=== PATIENT | male | born 1985 | race African-American/Black ===

== ENCOUNTER 2017-02-14 22:22 | Emergency (ER) | payer OTHER ==
[~2017-02-14] VITALS: Ht 188 cm; Wt 90.7 kg
[2017-02-14 23:39] VITALS: BP 127/76
== END 2017-02-14 23:40 | disposition home or self-care (01) ==
LOC: ER 22:22
DX: J06.9 Acute upper respiratory infection, unspecified (principal); B34.9 Viral infection, unspecified; M06.9 Rheumatoid arthritis, unspecified; F10.99 Alcohol use, unspecified with unspecified alcohol-induced disorder; F17.200 Nicotine dependence, unspecified, uncomplicated

== ENCOUNTER 2017-08-18 16:25 | Emergency (ER) | payer OTHER ==
[~2017-08-18] VITALS: Ht 188 cm; Wt 90.7 kg
--- NOTE | ~2017-08-18 | EKG ---
[facility] [place] [address] ELECTROCARDIOGRAM REPORT Name: ROSA ELENATERRIE Room #: DEP JORGE LUIS Ramos#: [id number] Admission: 08/18/17 Attend Phys: Discharge: 08/18/17 Date of : 89 Report #: [id number] THIS REPORT FOR: //name// [facility] ED Test Date: 2017-08-18 Test Time: 16:52:36 Pat Name: TERRIE CUBA Department: Room: Gender: Court Recording Monitor: HUBER : 1985 Requested By: Adi Mcknight Order Number: [id number] MD: Loki Reyes Measurements Intervals Fluker Rate: 60 P: 62 MS: 179 QRS: 66 QRSD: 91 T: 60 QT: 382 QTc: 382 Interpretive Statements Sinus rhythm ST elev, probable normal early repol pattern Baseline wander in lead(s) V2 No previous ECG available for comparison Electronically Signed On 08-19-2017 8:04:27 [employer]ESS [employer]KE [employer]PER[employer] by Loki Reyes [email or web address] <ELECTRONICALLY SIGNED> By: Loki Reyes MD, [facility] 08/19/17 0804 [id number] Loki Reyes MD, FACC /EPI
[2017-08-18 17:08] LABS: ABSOLUTE NEUTROPHILS 4.3 thou/uL (1.4-8.2); BASOPHILS 1.6 % (0.0-2.0); EOSINOPHILS 0.9 % (0.0-3.0); HEMATOCRIT 46.4 % (42.0-52.0); HEMOGLOBIN 15.2 gm/dL (14.0-18.0); LYMPHOCYTES 24.3 % (24.0-44.0); MCH 30.5 pg (26.0-34.0); MCHC 32.7 g/dL (28.0-37.0); MCV 93.4 fL (80.0-100.0); MONOCYTES 8.5 % (1.0-8.0); PLATELET COUNT 198 thou/uL (150-400); POLYS 64.7 % (36.0-66.0); RBC 4.97 mil/uL (4.50-6.00); RDW 13.3 % (10.5-14.5); WBC 6.7 thou/uL (4.0-11.0)
[2017-08-18 17:20] LABS: ANION GAP 9 mmol/L (7-16); BUN 14 mg/dL (7-18); CALCIUM 9.6 mg/dL (8.5-10.1); CHLORIDE 104 mmol/L (98-107); CO2 29 mmol/L (21-32); CREATININE 1.2 mg/dL (0.7-1.3); GLUCOSE 74 mg/dL (74-106); POTASSIUM 3.8 mmol/L (3.5-5.1); SODIUM 142 mmol/L (136-145)
[2017-08-18 17:30] LABS: TROPONIN-I < 0.04 ng/mL (<0.06)
[2017-08-18] MEDS ORDERED: ANTIVERT25 MG PO (17:54)
== END 2017-08-18 18:45 | disposition home or self-care (01) ==
LOC: ER 16:25
PROVIDERS: Physician Assistant
DX: R42 Dizziness and giddiness (principal); M06.9 Rheumatoid arthritis, unspecified; F17.210 Nicotine dependence, cigarettes, uncomplicated